=== PATIENT | female | born 1975 ===

== ENCOUNTER 2023-03-02 10:09 | Outpatient (CLI) | payer OTHER, SELFPAY ==
--- NOTE | 2023-03-02 09:47 | DI.MAMMO_ITS ---
Exam(s) MAMMO SCREENING EXAM: MAMMO SCREENING CLINICAL HISTORY: SCREENING, Z12.31 TECHNIQUE: Mammograms were interpreted according to the usual protocol including computer analysis w [employer] CAD system, tomosynthesis and C-view imaging. COMPARISON: [id number] FINDINGS: The breasts are composed of heterogeneously dense fibroglandular densities, Breast Density category C . No suspicious masses or suspicious microcalcifications are seen. No skin thickening or abnormal axillary lymph nodes are seen. There has been no significant change from prior exams. IMPRESSION: BI-RADS Category 1, Negative mammogram. Yearly screening mammography is recommended. Breast Density Category C, heterogeneously Dense. The mammogram demonstrates the patient's breast tissue is dense. Dense breast tissue is very common a nd is not abnormal but dense breast tissue can make it harder to find cancer on a mammogram. Also, de nse breast tissue may increase breast cancer risk. This information about the result of the mammogram report was provided to the patient to raise their awareness. Use this report when you speak with the patient about their risks for breast cancer, which includes their family history. At that time, you may recommend additional screening tests (Ultrasound or MRI) as they might be useful based on their r isk. A negative radiographic report should not delay biopsy if a dominant or clinically suspicious mass is present. Up to ten percent of cancers are not identified on mammography. A negative report may reinforce clinical impression. Adenosis and dense breasts may obscure an underlying neoplasm. False positive reports average 6 to 10%.
== END 2023-03-02 10:29 ==
PROVIDERS: Visit Provider Internal Medicine
DX: Z12.31 Encounter for screening mammogram for malignant neoplasm of breast (principal)
CPT/HCPCS: 77063; 77067

== ENCOUNTER 2024-06-26 14:49 | Outpatient (CLI) | payer OTHER, SELFPAY ==
--- NOTE | 2024-06-26 | DI.MAMMO_ITS ---
Exam(s) MAMMO SCREENING EXAM: MAMMO SCREENING CLINICAL HISTORY: SCREENING MAMMO Z12.31 TECHNIQUE: Bilateral full field digital CC and MLO mammographic images were obtained with 3D tomosyn thesis and utilizing computer aided detection (CAD). COMPARISON: Available for comparison. FINDINGS: Masses/Architectural Distortion: None seen. Microcalcifications: No suspicious pleomorphic-type are seen. Skin Thickening/Nipple Retraction: None. IMPRESSION: 1. No significant interval change with no specific features of malignancy noted. 2. Unless there is more urgent need, screening mammography is recommended, as per [employer] guidelines. BI-RADS Category 1 - Negative Breast Density - Category C - Heterogeneously dense Breast density category C or D implies that the patient has dense breast tissue. Dense breast tissue is very common and is not abnormal but dense breast tissue can make it harder to find cancer on a ma mmogram. Also, dense breast tissue may increase their breast cancer risk. This information about the result of the mammogram report was provided to the patient to raise their awareness. Use this report when you speak with the patient about their risks for breast cancer, which includes their family hist ory. At that time, you may recommend for more screening tests (Ultrasound or MRI) as they might be us eful based on their risk. A negative radiographic report should not delay biopsy if a dominant or clinically suspicious mass is present. Up to ten percent of cancers are not identified on mammography. A negative report may reinforce clinical impression. Adenosis and dense breasts may obscure an underlying neoplasm. False positive reports average 6 to 10%. Patient will receive a letter notifying them of these results.
== END 2024-06-26 15:09 ==
LOC: DI 14:50
PROVIDERS: Visit Provider Internal Medicine
DX: Z12.31 Encounter for screening mammogram for malignant neoplasm of breast (principal)
CPT/HCPCS: 77063; 77067

== ENCOUNTER → 2025-07-18 10:40 | Outpatient (CLI) | payer OTHER, SELFPAY ==
--- NOTE | 2025-07-18 11:01 | DI.MAMMO_ITS ---
Exam(s) MAMMO SCREENING EXAM: MAMMO SCREENING CLINICAL HISTORY: SCREENING, Z12.31 TECHNIQUE: Bilateral full field digital CC and MLO mammographic images were obtained with 3D tomosynthesis and utilizing computer aided detection (CAD). COMPARISON: Comparison is made with prior examinations. FINDINGS: Masses/Architectural Distortion: No suspicious masses or areas of architectural distortion are present. Microcalcifications: No suspicious pleomorphic-type are seen. Skin Thickening/Nipple Retraction: None. IMPRESSION: 1. No significant interval change with no specific features of malignancy noted. 2. Unless there is more urgent need, screening mammography is recommended, as per [employer] guidelines. BI-RADS Category 1 - Negative Breast Density - Category C - The breast are heterogeneously dense, which may obscure small masses. Breast density Category C or D implies that the patient has dense breast tissue. Dense breast tissue can make it harder to find cancer on a mammogram. Dense breast tissue is also associated with an increased risk of breast cancer. This information about the result of the mammogram report was provided to the patient to raise their awareness. Use this report when you speak with the patient about their risks for breast cancer, which includes their family history. At that time, you may recommend additional screening tests (Ultrasound or MRI) as these tests may add significant information. A negative radiographic report should not delay biopsy if a dominant or clinically suspicious mass is present. Up to ten percent of cancers are not identified on mammography. A negative report may reinforce clinical impression. Adenosis and dense breasts may obscure an underlying neoplasm. False positive reports average 6 to 10%. Patient will receive a letter notifying them of these results.
== END ==
PROVIDERS: Visit Provider Internal Medicine
DX: Z12.31 Encounter for screening mammogram for malignant neoplasm of breast (principal)
CPT/HCPCS: 77063; 77067

== ENCOUNTER 2025-09-02 11:46 | Emergency (ER) | payer OTHER, SELFPAY ==
--- NOTE | 2025-09-02 11:48 | W.ED.GENAD ---
Discharge Plan Disposition Patient Disposition: Home Discharge Details Clinical Impression: Community acquired pneumonia Primary Care Provider: Unknown,Unknown ED Provider: Rivera Alicea Home Meds and New Rx's Prescriptions: New promethazine-DM 6.25-15 mg/5 mL syrup 5 ml PO Q6H PRNQty: 118 0RF cetirizine 10 mg tablet 10 mg PO DAILY PRNQty: 7 0RF benzonatate 100 mg capsule 100 mg PO BID PRNQty: 7 0RF naproxen 500 mg tablet 500 mg PO BID PRNQty: 7 0RF amoxicillin 500 mg capsule 1,000 mg PO TID 7 Days Qty: 42 0RF Discharge Instructions Additional Instructions: You were seen in the emergency department for your cough headache chills. Your x-ray showed pneumonia. Please take these antibiotics as directed. Please return if you develop worsening cough or shortness of breath. You are also receiving supportive medications. For your pain please take medications as follows: 1. Take acetaminophen (Tylenol), 1,000 mg (two 500 mg tabs) every 6 hours [2. Take ibuprofen (Advil), 400 mg every 6 hours.] Stand Alone Forms: Portal Information HPI General Date/Time Provider Initiated Documentation: 09/02/25 11:48. HPI Narrative: MDM This is an overall very well-appearing tachycardic previously healthy 50-year-old female with approximately 2 weeks of cough concerning for pneumonia for which patient undergo two-view chest x-ray and respiratory viral swab. Patient has elevated normal temperature. I considered sepsis however patient is quite well-appearing so I felt that the risks of broad-spectrum antibiotics and blood cultures outweighed the benefits. She has not been vomiting so I did not feel that she required IV placement nor assessment of her electrolytes. Her oxygen saturation has been slightly difficult to obtain as she reportedly has history of Raynaud's syndrome. She has no respiratory distress and is not tachypneic so I do not feel she requires supplemental oxygen. She is not pale appearing to suggest increased risk for GI bleed. In the setting of cough and URI symptoms with sick contacts my suspicion for pulmonary embolism was lower so I did not send D-dimer. No chest pain to suggest ACS so I did not order twelve-lead ECG. No history of asthma nor prolonged expiratory phase no wheezes to suggest benefit from nebulized albuterol ipratropium. 1:05 PM Patient was found to have left-sided infiltrate on chest x-ray with radiology also reading a possible mild right lung infiltrate. Patient was persistently tachycardic. Will treat with amoxicillin and doxycycline and obtain venous blood gas and provide 1 L of IV fluids while assessing basic labs. The patient is ambulatory without hypoxia and feels improved will discharge with antibiotics and antitussives. 1:13 PM Respiratory viral swab negative for COVID, influenza, and RSV. 1:23 PM Venous blood gas lacks acidemia and hypercarbia. 1:45 PM Patient metabolic panel showing normal renal function. No acute electrolyte abnormalities. CBC lacks anemia thrombocytopenia and leukocytosis. 2:30 PM Patient ambulated without hypoxia. She felt improved in the emergency department. Her tachycardia resolved. Will discharge her with amoxicillin and doxycycline in addition to supportive medications. We discussed that she should return to the emergency department if she developed any worsening shortness of breath any nausea or vomiting that prevented her from taking her medications or if she had any other concerns. She understood her return indications and was discharged with an empiric trial of expectant outpatient management. 4:13 PM Of note patient's heart rate following ambulation was 104 bpm. Patient I had discussed possibility of admission. Patient did not want admission. Of note her port score was 39 making her appropriate for outpatient management. She had not been vomiting so and I am not suspicious for worsening tachycardia. HPI This is a patient presenting with cold and cough symptoms. She has been experiencing symptoms consistent with a cold and cough for the past 2 weeks. The initial symptoms included body aches and chills, which have since subsided. She reports no significant sinus issues but has recently developed intermittent headaches. Excedrin helps alleviate both the headaches and body aches. She sought medical attention at an urgent care facility due to sweats and chills, where her temperature was recorded as 99.7 degrees Fahrenheit. Her appetite, which was previously diminished, is now improving. She does not take any daily medications. She does not smoke cigarettes. She reports no history of asthma or liver disease. She reports no history of thromboembolic events in her legs or lungs and is not currently on hormone therapy. She recently traveled to [place] a week ago, prior to the onset of her illness. She reports a productive cough and chest pain, which she attributes to severe coughing. She has been practicing deep breathing exercises and reports that her chest pain is now more of an ache. She took Tessalon Perles over the weekend, which helped reduce the severity of the pain, although she experienced stabbing pain in specific areas of her chest. Exam General: Well-appearing in no acute distress speaking in complete sentences. Head: Normocephalic, atraumatic. Eye: Extraocular eye movements intact. No conjunctival injection. No scleral icterus. Ear, nose, mouth, throat: Grossly normal inspection. Normal voice, handling secretions normally. Neck: Trachea midline. Cardiovascular: Well-perfused distal extremities. Rapid regular rate. Respiratory: Nonlabored respiration. Clear lungs bilaterally. Transmitted upper airway sounds. No wheezes. No rhonchi. Gastrointestinal: Nondistended abdomen. Musculoskeletal: No edema. Moving all 4 extremities spontaneously. Skin: Normal for age and race, grossly normal temperature and turgor. No acute rash. Neurologic: Alert and appropriate, no apparent acute deficits. Psychiatric: Mood and manner are appropriate. Grooming and personal hygiene are appropriate. Related Data Home Medications ?Medication ?Instructions ?Recorded ?Confirmed amoxicillin 500 mg capsule 1,000 mg (2 x 500 mg) PO TID 7 09/02/25 days #42 caps benzonatate 100 mg capsule 100 mg PO BID PRN #7 caps 09/02/25 cetirizine 10 mg tablet 10 mg PO DAILY PRN #7 tabs 09/02/25 naproxen 500 mg tablet 500 mg PO BID PRN #7 tabs 09/02/25 promethazine-DM 6.25 mg-15 mg/5 mL 5 ml PO Q6H PRN #118 mL 09/02/25 oral syrup Previous Rx's ?Medication ?Instructions ?Recorded amoxicillin 500 mg capsule 1,000 mg (2 x 500 mg) PO TID 7 09/02/25 days #42 caps benzonatate 100 mg capsule 100 mg PO BID PRN #7 caps 09/02/25 cetirizine 10 mg tablet 10 mg PO DAILY PRN #7 tabs 09/02/25 naproxen 500 mg tablet 500 mg PO BID PRN #7 tabs 09/02/25 promethazine-DM 6.25 mg-15 mg/5 mL 5 ml PO Q6H PRN #118 mL 09/02/25 oral syrup Allergies Allergy/AdvReac Type Severity Reaction Status Date / Time No Known Allergies Allergy Unverified 09/02/25 11:56 PFSH All Active Problems (Updated 09/02/25 @ 13:06 by Rivera Alicea MD) Community acquired pneumonia (Acute) Social History Smoking risk assessment performed?: No
[2025-09-02 11:51] VITALS: BP 114/73; PULSE 120; RESP 20; TEMP 37.7; O2SAT 95
[2025-09-02 11:54] VITALS: BP 114/73; PULSE 120; RESP 20; TEMP 37.7
[2025-09-02] MEDS: Acetaminophen 500 MG TAB 1000 MG PO (12:30)
[2025-09-02] MEDS: Ibuprofen 600 MG TAB PO (12:30)
--- NOTE | 2025-09-02 12:40 | DI.RAD_ITS ---
Exam(s) XR CHEST 2V PA LATERAL EXAM: XR CHEST 2V PA LATERAL CLINICAL HISTORY: Cough. TECHNIQUE: 2D digital imaging was performed. COMPARISON: No exams were available for comparison FINDINGS: 2 views: Heart size is normal. The mediastinum is not widened. Or there is significant infiltrate in the lingular segment of the left lung. Slightly increased markings also noted in the right lung base. No pleural effusions. IMPRESSION: Significant infiltrate in the lingular segment of the left lung. Also possible mild infiltrate in the lower right lung field. No pleural effusions. Called to ER 09/02/2025 12:55 p.m. DATA REPOSITORY: RADIATION DOSE DELIVERED:
[2025-09-02 12:51] VITALS: PULSE 96; O2SAT 97
[2025-09-02 12:54] LABS: COVID-19 PCR Negative (Negative); RSV PCR Negative (Negative)
[2025-09-02] MEDS: Doxycycline Hyclate 100 MG CAP PO (13:16)
[2025-09-02] MEDS: Normal Saline 1,000 ML 1000 ML IV (13:16)
[2025-09-02] MEDS: Amoxicillin 500 MG CAP PO (13:16)
[2025-09-02] MEDS: Benzonatate 100 MG CAP PO (13:16)
[2025-09-02 13:19] LABS: BE (Venous) 0 mmol/L (-2-3); HCO3 (Venous) 25 mmol/L (23-28); O2 Sat (Venous) 57 %; TCO2 (Venous) 23 mmol/L (24-29); pCO2 (Venous) 41 mmHg (41-51); pO2 (Venous) 32 mmHg
[2025-09-02 13:24] LABS: Abs Immature Grans 0.05 10^3/uL (0.0-0.06); HCT 34.3 % (36.0-46.0); HGB 11.3 g/dL (11.2-15.7); Immature Grans % 0.5 %; MCH 30.8 pg (27.0-33.0); MCHC 32.9 % (32.0-36.0); MCV 94 fL (80-95); MPV 9.8 fL (8.0-11.0); Platelet Count 280 10^3/uL (130-400); RBC 3.67 10^6/uL (3.93-5.22); RDW 12.5 % (11.7-14.6); RDW-SD 43.3 fL; WBC 9.97 10^3/uL (4.4-10.8)
[2025-09-02 13:40] LABS: Anion Gap 9.1 mmol/L (3-11); BUN 9 mg/dL (9-23); CO2 24.9 mmol/L (20.0-31.0); Calcium 8.7 mg/dL (8.3-10.6); Chloride 103 mmol/L (98-107); Glucose 84 mg/dL (74-106); Potassium 3.6 mmol/L (3.5-5.1); Sodium 137 mmol/L (136-145)
[2025-09-02 14:08] VITALS: PULSE 96; O2SAT 97
[2025-09-02 15:27] VITALS: BP 96/56; PULSE 96; RESP 12; TEMP 37; O2SAT 95
== END 2025-09-02 15:28 | disposition home or self-care (01) ==
PROVIDERS: Emergency Provider Emergency Medicine
DX: J18.9 Pneumonia, unspecified organism (principal)
CPT/HCPCS: 99284 ×2; 36415; 80048; 82805; 87637; 96360; 71046; 85025